=== PATIENT | male | born 1970 | race American Indian/Alaskan Native ===

== ENCOUNTER 2020-07-06 18:40 | Emergency (ER) | payer OTHER, MEDICARE ==
[2020-07-06 19:23] VITALS: BP 158/118
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
[2020-07-06] MEDS ORDERED: ACETAMINOPHEN 500 MG TAB PO ONE (21:00)
[2020-07-06] MEDS ORDERED: IBUPROFEN 600 MG TAB PO ONE (21:00)
== END 2020-07-06 21:11 | disposition home or self-care (01) ==
LOC: ED 18:40
DX: S86.911A Strain of unspecified muscle(s) and tendon(s) at lower leg level, right leg, initial encounter (principal); F41.9 Anxiety disorder, unspecified; F31.9 Bipolar disorder, unspecified; F20.9 Schizophrenia, unspecified; Z79.899 Other long term (current) drug therapy; V89.2XXA Person injured in unspecified motor-vehicle accident, traffic, initial encounter; Y92.488 Other paved roadways as the place of occurrence of the external cause; Y93.89 Activity, other specified; Y99.8 Other external cause status
CPT/HCPCS: 99282; 99283